=== PATIENT | male | born 1950 | race Caucasian/White ===

== ENCOUNTER 2016-11-02 10:24 | Emergency (ER) | payer OTHER, MEDICARE ==
[2016-11-02] MEDS ORDERED: NS 1,000 ML IV ONE (10:27)
[2016-11-02 10:36] LABS: % IMMATURE GRANULYOCYTES 0.2 % (0.0-1.1); ABSOLUTE IMMATURE GRANULOCYTES 0.02 10^3/uL (0.00-0.10); ADD DIFF? NO; ADD MORPH? NO; ADD SCAN? NO; ATYPICAL LYMPHOCYTE FLAG 20 (0-99); FRAGMENT RBC FLAG 0 (0-99); HEMATOCRIT 43.5 % (40.0-51.0); HEMOGLOBIN 15.1 g/dL (13.7-17.5); LEFT SHIFT FLG 10 (0-99); LIPEMIA HEMOLYSIS FLAG 90 (0-99); MEAN CELL HEMOGLOBIN 32.1 pg (27.9-34.1); MEAN CELL HEMOGLOBIN CONCENTR. 34.7 g/dL (32.4-36.7); MEAN CELL VOLUME 92.4 fL (81.5-99.8); MEAN PLATELET VOLUME 10.7 fL (8.7-11.7); PLATELET CLUMPS FLAG 0 (0-99); PLATELET COUNT 191 10^3/uL (150-400); RED BLOOD CELL COUNT 4.71 10^6/uL (4.40-6.38); RED CELL DISTRIBUTION WIDTH 13.1 % (11.5-15.2)
--- NOTE | 2016-11-02 10:37 | CPEKG ---
Heart Rate: 46 RR Interval: 1304 P-R Interval: 220 QRSD Interval: 102 QT Interval: 516 QTC Interval: 452 P [place]: 18 QRS [place]: -10 T Wave [place]: 15 EKG Severity - ABNORMAL ECG - EKG Impression: SINUS BRADYCARDIA EKG Impression: PROBABLE LEFT VENTRICULAR HYPERTROPHY Electronically Signed By: Yonathan Joseph 03-Nov-2016 08:13:04
--- NOTE | 2016-11-02 10:38 | EDPHY ---
HPI/HX/ROS/PE/MDM Narrative: CHIEF COMPLAINT: Syncope, back pain HPI: This patient is a 64-year-old male who presents to the Emergency Department via EMS after a suspected syncopal episode this morning that was suspected to be secondary to worsening low back pain beginning yesterday morning and exacerbated last night after playing [employer] ball at a family gathering. He reportedly took Vicodin to treat his musculoskeletal low back pain prior to going to asleep. He was found down this morning by family and appeared diaphoretic, prompting them to call EMS. He denies trauma or injuries secondary to the syncopal collapse. At time of arrival, he feels drowsy and nauseated. He describes persistent chronic low back pain more sever than at baseline. No chest pain, dyspnea, or additional complaints. Denies cardiac history or history of back surgery. REVIEW OF SYSTEMS: Aside from elements discussed in the HPI, a comprehensive 10-point review of systems was reviewed and is negative. PMH: Anxiety, depression SOCIAL HISTORY: and son at bedside. reports that he goes to the gym daily and is very active. PHYSICAL EXAM: General:Patient is pale, diaphoretic, appears nauseated, in no acute distress. ENT:Eyes are normal to inspection. ENT inspection normal. Neck: Normal inspection. Full range of motion. Respiratory:No respiratory distress. Breath sounds normal bilaterally. Cardiovascular: Regular rate and rhythm. Strong peripheral pulses. Normal cap refill. Abdomen:The abdomen is nontender to palpation. There are no peritoneal signs. There are normal bowel sounds. Back: Normal to inspection. No tenderness to palpation. Skin: Normal color. No rash. Warm and dry. Extremities: Normal appearance. Full range of motion. Neuro: Oriented x3. Normal motor function. Normal sensory function. ED Course: 1025: Took EMS report at bedside. Vitals in transport: BP 134/84, sinus bradycardia, 6mg Zofran and 2mg Ativan administered in transport. 66-year-old male presenting via EMS following syncopal episode when getting out of bed this morning. No trauma secondary to fall. He has had ongoing musculoskeletal back pain for which he took a Vicodin last night and reported persistent pain this morning. He reports falling and believes he lost consciousness. He is fatigued and nauseated at time of arrival despite Zofran administered in transport. He is bradycardic on initial exam and appears pale. Will proceed with cardiac workup including chest x-ray, EKG, and labs. EKG was ordered and confirms sinus bradycardia, interpreted by myself. Repeat EKG obtained and interpreted by me. Please see [employer] system for official readings. Labs obtained and are unremarkable. Troponin is negative. 1227: On reevaluation, the patient reports feeling much better. He is less pale and appears more comfortable. I discussed with him my recommendation that we proceed with CT of the abdomen and pelvis for evaluation of his severe, persistent low back pain. He is agreeable to this. 1409: CT results reported to me by Dr. Dunham. 1423: I discussed lab and imaging results with the patient. He does continue to complain of back pain at this time. 15mg IV Toradol administered. On reevaluation, the patient's pain has improved and he feels comfortable going home. He will be given a referral to our on-call neurosurgeon for further evaluation of his back pain. I have give him strict return precautions prior to discharge; he will be discharged home in good condition. MDM: This patient presents with severe lower back pain that was worse with movement. I believe his syncopal episode and diaphoresis were likely secondary to a combination of pain and oral narcotic use. We performed an extensive evaluation in the ED, including troponin, ECG and CTAP which are negative for AAA, kidney stone, spinal cord emergency, abscess, bowel pathology or ACS. The patient feels much better here in the ED and is comfortable with discharge home and community integration specialist follow-up. - Data Points Imaging Results: Imaging Impressions Chest X-Ray 11/02/16 10:27 Impression: 1. Clear lungs. No acute process. 2. Stigmata of left chest surgery. 3. Loose body in right shoulder joint. Imaging: Discussed imaging studies w/ bilingual call center representative Radiologist Laboratory Results: Laboratory Results 11/02/16 10:30 11/02/16 10:30 11/02/16 11/02/16 10:30 10:30 WBC 8.10 10^3/uL 10^3/uL (3.80-9.50) RBC 4.71 10^6/uL 10^6/uL (4.40-6.38) Hgb 15.1 g/dL g/dL (13.7-17.5) Hct 43.5 % % (40.0-51.0) MCV 92.4 fL fL (81.5-99.8) MCH 32.1 pg pg (27.9-34.1) MCHC 34.7 g/dL g/dL (32.4-36.7) RDW 13.1 % % (11.5-15.2) Plt Count 191 10^3/uL 10^3/uL (150-400) MPV 10.7 fL fL (8.7-11.7) Neut % (Auto) 51.4 % % (39.3-74.2) Lymph % (Auto) 32.0 % % (15.0-45.0) [place] % (Auto) 9.9 % % (4.5-13.0) Eos % (Auto) 5.4 % % (0.6-7.6) Baso % (Auto) 1.1 % % (0.3-1.7) Nucleat RBC Rel Count 0.0 % % (0.0-0.2) Absolute Neuts (auto) 4.16 10^3/uL 10^3/uL (1.70-6.50) Absolute Lymphs (auto) 2.59 10^3/uL 10^3/uL (1.00-3.00) Absolute Monos (auto) 0.80 10^3/uL 10^3/uL (0.30-0.80) Absolute Eos (auto) 0.44 10^3/uL H 10^3/uL (0.03-0.40) Absolute Basos (auto) 0.09 10^3/uL 10^3/uL (0.02-0.10) Absolute Nucleated RBC 0.00 10^3/uL 10^3/uL (0-0.01) Immature Gran % 0.2 % % (0.0-1.1) Immature Gran # 0.02 10^3/uL 10^3/uL (0.00-0.10) Sodium 142 mEq/L mEq/L (134-144) Potassium 4.1 mEq/L mEq/L (3.5-5.2) Chloride 106 mEq/L mEq/L (97-110) Carbon Dioxide 24 mEq/l mEq/l (22-31) Anion Gap 12 mEq/L mEq/L (8-16) BUN 31 mg/dL H mg/dL (7-23) Creatinine 1.0 mg/dL mg/dL (0.7-1.3) Estimated GFR > 60 Glucose 114 mg/dL H mg/dL (70-100) Calcium 9.5 mg/dL mg/dL (8.5-10.4) Troponin I < 0.012 ng/mL ng/mL (0-0.034) Medications Given: Discontinued Medications Sodium Chloride (Ns) 1,000 mls @ 0 mls/hr IV ONCE ONE; Wide Open PRN Reason: Protocol Stop: 11/02/16 10:28 Last Admin: 11/02/16 10:38 Dose: 1,000 mls Ketorolac Tromethamine (Toradol) 15 mg IVP EDNOW ONE Stop: 11/02/16 14:23 Last Admin: 11/02/16 14:31 Dose: 15 mg Ondansetron HCl (Zofran) 4 mg IVP EDNOW ONE Stop: 11/02/16 10:47 Last Admin: 11/02/16 10:48 Dose: 4 mg General Initial Vital Signs: Initial Vital Signs Temperature (C) 36.4 C 11/02/16 10:31 Heart Rate 71 11/02/16 10:31 Respiratory Rate 18 11/02/16 10:31 Blood Pressure 141/72 H 11/02/16 10:31 O2 Sat (%) 96 11/02/16 10:31 O2 Delivery Mode Room Air Allergies/Adverse Reactions: No Known Allergies Allergy (Unverified 11/02/16 10:30) Home Medications: Medication Instructions Recorded Cyclobenzaprine [Flexeril] 10 mg PO TID #15 tab 11/02/16 methylPREDNISolone [Medrol Dose 1 each PO AD #1 ea 11/02/16 Vazquez] Departure - Departure Disposition: Home, Routine, Self-Care Clinical Impression: Low back pain Qualifiers: Chronicity: acute Back pain laterality: bilateral Sciatica presence: without sciatica Qualified Code(s): M54.5 - Low back pain Syncope Qualifiers: Syncope type: unspecified Qualified Code(s): R55 - Syncope and collapse Condition: Good Instructions: Syncope (ED), Back Pain (ED) Additional Instructions: 1. Follow-up with a neurosurgeon for further evaluation of your back pain. We have referred you to our on-call provider, Dr. Granados. 2. Return to the Emergency Department if you experience repeat fainting episodes , uncontrollable back pain, chest pain, excessive sweating, lightheadedness, or other serious concerns. Referrals: Jefferson Granados MD [Medical Doctor] - As per Instructions Prescriptions: Cyclobenzaprine [Flexeril] 10 mg PO TID #15 tab methylPREDNISolone [Medrol Dose Vazquez] 1 each PO AD #1 ea Report Scribed for: Jose Toro Report Scribed by: Elinor Maurer Date of Report: 11/02/16 Time of Report: 10:25 Physician Review and Approval Statement: Portions of this note were transcribed by an ED scribe. I personally performed the history, physical exam, and medical decision making; and confirm the accuracy of the information in the transcribed note.
[2016-11-02] MEDS ORDERED: ONDANSETRON 4 MG/2 ML VIAL IVP ONE (10:46)
[2016-11-02] MEDS ORDERED: ONDANSETRON 4 MG/2 ML VIAL ONE (10:47)
[2016-11-02 11:00] LABS: ANION GAP 12 mEq/L (8-16); CALCIUM 9.5 mg/dL (8.5-10.4); CARBON DIOXIDE 24 mEq/l (22-31); CHLORIDE 106 mEq/L (97-110); GLOMERULAR FILTRATION RATE > 60; GLUCOSE 114 mg/dL (70-100); POTASSIUM 4.1 mEq/L (3.5-5.2); SODIUM 142 mEq/L (134-144)
[2016-11-02 11:11] LABS: TROPONIN I < 0.012 ng/mL (0-0.034)
[2016-11-02] MEDS ORDERED: IOPAMIDOL (ISOVUE-300) 100 ML BTL ONE (13:21)
[2016-11-02] MEDS ORDERED: KETOROLAC 30 MG/1 ML SDV IVP ONE (14:22)
[2016-11-02 14:33] VITALS: BP 141/79; PULSE 44; RESP 16; TEMP 97.2; O2SAT 98
== END 2016-11-02 15:34 | disposition home or self-care (01) ==
LOC: EDUNIT#
DX: M54.5 Low back pain (principal); R55 Syncope and collapse; E86.9 Volume depletion, unspecified
CPT/HCPCS: 71020; 74177; 93005; 96361; 96374; 96375; 99285; J1885; J2405; Q9967